=== PATIENT | male | born 2000 | race Caucasian/White ===

== ENCOUNTER 2022-08-20 18:37 | Emergency (ER) | payer OTHER, SELFPAY ==
[2022-08-20 18:43] VITALS: BP 116/100; PULSE 114; RESP 16; TEMP 36.4; O2SAT 100
--- NOTE | 2022-08-20 18:48 | ED.SKABFB ---
HPI - Skin/Abscess/Foreign Bdy General Chief complaint: Psychiatric Symptoms Stated complaint: objects in throat and coming out of ear Time Seen by Provider: 08/20/22 18:50 Source: patient and RN notes reviewed Mode of arrival: ambulatory Limitations: no limitations History of Present Illness HPI narrative: 22-year-old male presents with concern for ?bot flies calming out of his eyes, ear, chest. He reports he can ?feel them crawling around in his chest and in his head making tunnels?. Patient presented without shoes or a shirt. Patient reports history of mild bipolar, denies illicit drug use. MD complaint: insect bite/sting Related Data Allergies Allergy/AdvReac Type Severity Reaction Status Date / Time No Known Allergies Allergy Unknown Verified 08/20/22 18:49 Review of Systems Review of Systems: CONSTITUTIONAL: Reports malaise, fever. EYES: Denies redness, or discharge. ENT: Denies rhinorrhea, congestion. Reports ear pain CARDIOVASCULAR: Denies palpitations, or edema. RESPIRATORY: Denies cough or dyspnea. GASTROINTESTINAL: Denies abdominal pain, nausea, vomiting SKIN: Reports rash on his chest MUSCULOSKELETAL: Denies joint pain or myalgia. NEUROLOGIC: Denies headache. All systems reviewed & are unremarkable except as noted in HPI and below PMFSH Comments At time of signature, agree with nursing past medical, surgical, social and family history. There is no relevant family history pertinent to the presenting complaint Exam Narrative: GENERAL: Nontoxic-appearing and in no acute distress. HEAD: Normocephalic, atraumatic. EYES: PERRLA, conjunctivae clear, and EOMI. ENT: Mucous membranes moist. Oropharynx without edema, erythema or lesions. Right TM pearly villasenor, left TM erythematous and bulging, left ear erythematous and slightly edematous, EAC slightly erythematous and edematous, erythema extending slightly into the left cheek and behind the left ear. No palpable masses, fluctuant areas noted to the face or scalp NECK: Supple. No lymphadenopathy CHEST: Clear to auscultation. No respiratory distress. HEART: Regular rate and rhythm. SKIN: Warm, dry. Healing skin to the chest, periods to have had old scabs picked off. No palpable nodules, fluctuant areas noted NEURO: Alert and oriented x3. PSYCH: Patient is picking at his chest, pulling at his face and his ears, patient insisting that he has bot flies making tunnels in his body. Course Course Emergency Course: Patient reports history of bipolar, however patient appears to be suffering from mental illness. I discussed with patient that I did not see any evidence of bot flies, he insisted that he does have bot flies. I advised patient that he does have a significant ear infection and needs antibiotics to treat that. I asked patient if he has the means to get the antibiotics, transportation to the pharmacy. He states that he does. I offered patient transfer to emergency room for further evaluation, patient refuse transfer to emergency room says he will go there on his own if he needs to. Patient gave me permission to contact his father, I left a message for patient's father Patient is aware of diagnosis, understands and agrees to treatment plan. Anticipatory guidance given. Patient agrees to follow-up as directed and is aware of reasons to seek care at the emergency department. Portions of this record may have been created with voice recognition software Level of Care: Express Care Visit Vital Signs Vital signs: Reviewed. MDM - Skin/Abscess/Foreign Bdy MDM Narrative Medical decision making narrative: Exam findings show no acute concerns or changes; patient is non-toxic appearing and is in no distress. Patient is appropriate for outpatient treatment and follow-up. Critical Care Time Critical Care Time Critical Care Time: No Discharge Plan Discharge Clinical Impression: Otitis media Patient Disposition: Home, Self-Care Condition: Stable
== END 2022-08-20 18:50 | disposition home or self-care (01) ==
PROVIDERS: Emergency Provider Nurse Practitioner
DX: H66.92 Otitis media, unspecified, left ear (principal)
CPT/HCPCS: 99213; G0463

== ENCOUNTER 2024-02-02 13:41 | Emergency (ER) | payer OTHER, SELFPAY ==
--- NOTE | ~2024-02-02 | CT_ITS ---
EXAMINATION: CT brain wo con DATE: 02/02/2024 17:11 INDICATION: Seizures TECHNIQUE: Computed tomography (CT) of the head was performed without intravenous contrast. The mA wa s adjusted according to patient size. Iterative reconstruction technique was employed. Exam dose: 60 5.33 mGy-cm total exam DLP. COMPARISON: 07/05/2012 CT head, reported negative FINDINGS: No intracranial mass lesion or hemorrhage or cerebrovascular accident. Normal villasenor-white ma tter differentiation. Normal ventricular size. No subdural or epidural hematoma. The mastoid air cells and paranasal sinuses are unremarkable. No fracture or bone destruction of the cranial vault. IMPRESSION: Normal examination Reviewed, dictated and finalized at [facility] Reviewed, dictated and finalized at [facility] [employer] IMPRESSION: Normal examination
[2024-02-02 13:50] VITALS: BP 142/72; PULSE 110; RESP 20; TEMP 36.1; O2SAT 100
--- NOTE | 2024-02-02 16:40 | ECG_ITS ---
Test Date: 2024-02-02 17:00:36 Measurements Intervals Cecil Rate: 94 P: 70 DE: 137 QRS: 92 QRSD: 102 T: 56 QT: 344 QTc: 431 Interpretive Statements SINUS RHYTHM BORDERLINE RIGHT AXIS DEVIATION [QRS AXIS > 90] No previous ECG available for comparison Electronically Signed On 02-03-2024 12:44:01 [employer] by Jonas Anne M.D.
[2024-02-02 16:59] LABS: Fractional Inspired Oxygen 21 %; HCO3 VBG 27.7 mEq/l (24.0-30.0); PCO2 VBG 47.1 mmHg (42.0-48.0); PO2 VBG 34.8 mmHg (35.0-45.0); pH VBG 7.387 (7.300-7.400)
[2024-02-02 17:00] VITALS: BP 118/66; PULSE 100; RESP 14; TEMP 36.6; O2SAT 100
[2024-02-02 17:00] LABS: Device ROOM AIR
[2024-02-02 17:08] LABS: Basophils Percent Auto 0.4 % (0.2-1.2); Eosinophils Absolute Auto 0.1 K/mm3 (0-0.3); Eosinophils Percent Auto 1.7 % (0-4.4); Hematocrit 43.8 % (42.0-52.0); Hemoglobin 14.8 g/dL (14.0-18.0); Immature Granulocyte Absolute 0.06 K/mm3 (0.00-0.031); Immature Granulocyte Percent A 0.7 % (0-0.5); Lymphocytes Absolute Auto 2.37 K/mm3 (0.9-3.2); Mean Corpuscular HGB Conc 33.8 g/dl (32-36); Mean Corpuscular Hemoglobin 30.3 pg (26-34); Mean Corpuscular Volume 89.8 fl (80-100); Mean Platelet Volume 9.4 fl (7.4-10.4); Monocytes Absolute Auto 0.7 K/mm3 (0.1-0.6); Monocytes Percent Auto 8.1 % (2.6-8.5); Neutrophils Absolute Auto 5.2 K/mm3 (1.3-6.7); Neutrophils Percent Auto 61.1 % (45.5-73.1); Platelet Count Result 303 k/mm3 (150-375); Red Blood Count 4.88 M/mm3 (4.6-6.20); Red Cell Distribution Width 13.3 % (11.5-14.5); White Blood Count 8.5 K/mm3 (4.5-10.0)
[2024-02-02 17:20] LABS: Acetaminophen < 10 ug/mL (10-30); Ethanol < 10 mg/dL (<10); Salicylate < 1.0 mg/dL (2-20)
[2024-02-02 17:30] LABS: Alanine Aminotransferase 23 U/L (6-50); Albumin Level 4.4 g/dL (3.5-5.1); Alkaline Phosphatase 53 U/L (38-126); Anion Gap 5 mmol/L (4-12); Aspartate Amino Transferase 27 U/L (17-59); Bilirubin,Total 0.3 mg/dL (0.2-1.3); Blood Urea Nitrogen 26 mg/dL (9-20); Calcium 9.4 mg/dL (8.4-10.2); Carbon Dioxide 29 mmol/L (22-30); Chloride 103 mmol/L (98-107); Estimated CRCL calculation 160 ml/min; Estimated Glomerular Filt Rate > 60; Glucose 94 mg/dL (65-110); Sodium 137 mmol/L (137-145)
[2024-02-02 19:00] VITALS: BP 120/74; PULSE 98; RESP 19; TEMP 37.2; O2SAT 100
[2024-02-02 19:03] LABS: Add Urine Microscopic? YES; Appearance Urine Turbid (Clear); Bacteria Urine None Seen /hpf; Bilirubin Urine Negative (Negative); Blood Urine Negative (Negative); Color Urine Yellow (Yellow); Glucose Urine UA Negative (Negative); Ketones Urine Negative (Negative); Leukocyte Esterase Ur 1+ LEU/UL (Negative); Need Manual Microscopic Reviewed; Nitrate Urine Negative (Negative); Non Pathogenic Casts 0-2; Protein Urine 1+ mg/dL (Negative); RBC Urine 51-100 /hpf (0-2); Specific Grav Ur 1.027 (1.001-1.035); Squamous Epithelial Cell Urine None Seen /hpf (Few); Urobilinogen Urine 0.2 mg/dL (<2.0); WBC Urine 51-100 /hpf (0-3)
[2024-02-02 19:04] LABS: Amorphous Sediment Urine Moderate
[2024-02-02] MEDS: LACTATED RINGERS 1,000 ML 999 ML IV CONT (19:04)
[2024-02-02 19:32] LABS: Amphetamine Screen Urine Negative (Negative); Barbiturate Screen Urine Negative (Negative); Benzodiazepines Screen Urine Negative (Negative); Cannabinoid Screen Urine Negative (Negative); Cocaine Screen Urine Negative (Negative); Methadone Screen Urine Negative (Negative); Opiate Screen Urine Negative (Negative); Phencyclidine Screen Urine Negative (Negative)
[2024-02-02 20:20] VITALS: BP 114/66; PULSE 94; RESP 19; O2SAT 99
[2024-02-02] MEDS: CEPHALEXIN 500 MG CAPSULE PO (20:20)
--- NOTE | 2024-02-02 20:24 | ED.PSYCH ---
HPI - Psych General Chief Complaint: Psychiatric Symptoms Stated Complaint: hallucinations, seizure-like activity Time Seen by Provider: 02/02/24 16:21 History of Present Illness HPI Narrative: 23-year-old male with a past medical history including previous psychiatric illness including bipolar disorder and schizophrenia. He has a history of polysubstance abuse including mushrooms, methamphetamine, alcohol use. Presents today via private vehicle with his mother who provides the majority of additional collateral formation. Patient self is pleasant but states he has been having hallucinations and grandiose thoughts. At home he states he has been having episodes of blacking out while having hallucinations. He states that these episodes are intermittent, no postictal symptoms are generalized shaking or any true seizure reported by the family member. No history of seizures. He does not report a longstanding history of drug use including methamphetamine, alcohol use, mushrooms. He states that over a month prior he also had a traumatic brain injury and feels like he could have a concussion from this. He has been having visual hallucinations and very incoherent thoughts and is difficult to speak to given his tangential thoughts without any coherent story line presently. Mother states that this has progressively worsened over last month for has had previous psychiatric hospitalizations for similar. Does not take any psychiatric medications at this time. patient is able to be redirected and when he is redirected he is able answer questions appropriately, denies any headache, chest pain, shortness a breath, nausea, vomiting, abdominal pain. Does endorse drinking some alcohol earlier today and states that he bought alcohol similar to moonshine at a local liquor. Mom states this is correct, and denies any illicit homemade true moonshine ingestion or other toxic alcohol ingestion. No recent illicit substance use according to both parties. Related Data Allergies Allergy/AdvReac Type Severity Reaction Status Date / Time No Known Allergies Allergy Unknown Verified 02/02/24 20:21 Review of Systems Review of Systems: as reviewed above ROS unobtainable: Yes unobtainable due to medical condition and unobtainable due to mental status PMFSH Social History Social History Substance use type: marijuana, amphetamines, IV drugs and methamphetamine Exam Narrative: GENERAL: [Well-appearing, well-nourished, and in no acute distress.] HEAD: [Normocephalic, atraumatic.] EYES: [PERRLA and EOMI.] ENT: Nares clear, no rhinorrhea or epistaxis. Mucous membranes moist. NECK: Supple. CHEST: [Clear to auscultation. No respiratory distress.] HEART: [Regular rate and rhythm]. No murmur heard. [Normal peripheral pulses.] ABDOMEN: [Soft, nondistended], [nontender], [No rigidity or guarding] EXTREMITIES: Normal range of motion. [No edema.] SKIN: Warm, dry, no rash. NEURO: [No focal deficits]. Alert and oriented [x3.] PSYCH: flat affect, tangential speech, difficult to interrupt but is redirectable. Pleasant and cooperative. Grandiose thoughts with visual hallucinations described. No audible hallucinations, no suicidal or homicidal ideation. Course Vital Signs Vital signs: Vital Signs Temperature 36.1 C L 02/02/24 13:50 Pulse Rate 110 H 02/02/24 13:50 Respiratory Rate 20 02/02/24 13:50 Blood Pressure 142/72 H 02/02/24 13:50 Pulse Oximetry 100 02/02/24 13:50 Oxygen Delivery Room Air 02/02/24 13:50 Temperature 37.2 C 02/02/24 19:00 Pulse Rate 94 02/02/24 22:15 Respiratory Rate 13 02/02/24 22:15 Blood Pressure 135/64 02/02/24 22:15 Pulse Oximetry 100 02/02/24 22:15 Oxygen Delivery Room Air 02/02/24 13:50 MDM - Psych MDM Narrative Medical decision making narrative: 23-year-old male presenting to the emergency department for evaluation of hallucinations, psychosis, potential seizures. patient self is calm and cooperative but does have a very flat affect and overly psychotic with pressured tangential speech, difficult to interrupt or redirect, grandiose thoughts with nonsensical verbiage and nonlinear story telling. he does have a history of substance abuse including methamphetamine, mushrooms, alcohol abuse. Does endorse drinking several shots of store bought taylor shine earlier today, But not the illicit hand made kind that has toxic alcohols in it. Denies any other toxic ingestions or any substances such as Tylenol, salicylates, aspirin. patient does endorse head trauma about 1 month prior and his mom knows that his psychosis type symptoms have been worsening since then. No history of seizures and she has not witnessed any generalized shaking, ictal state or any postictal state during his blacking out episodes. patient was self does appear to be in some sort of psychosis presently likely schizoaffective versus schizophrenia. He has a history of bipolar depression schizophrenia but does not taking medications according to himself and the mother. A broad psychiatric clearance workup was ordered this time including head CT images, urinalysis, urine drug screen, toxicological screenings including alcohol, VBG for any evaluation of acidosis from any potential toxic alcohol ingestion. he was given a fluid bolus., EKG also obtained. workup revealed no leukocytosis, anemia or platelet concerns. blood gas was independently interpreted without any acidosis, normal pCO2 and bicarb.Chemistry panel revealed normal electrolytes, normal renal function panel, normal hepatic function panel, normal glucose. Normal TSH. Urinalysis showed some red and white blood cells and mild leukocyte esterase elevations but no bacteria. Equivocal for potential urinary infection. Patient states he did have a recent STD which was treated. Will give him a dose of Keflex at this time. Has no urinary complaints urinary symptoms at this time. Likely unrelated to his presentation incidental finding. Toxicological screening showed a negative urine drug screen, negative Tylenol salicylates and alcohol level presently. CT head shows no acute intracranial process by my interpretation by radiology's interpretation. EKG shows normal sinus rhythm without any ectopy, ST segment elevations depressions or any interval anomalies. Regular rate rhythm an axis. Overall normal sinus rhythm without any previous EKG for direct comparison. I went and re-evaluated the patient several times. He has normal reassuring vital signs and his exam remains largely unchanged and still appear floridly psychotic on repeat evaluation. I discussed the workup findings with the patient and the mother at bedside who were understanding of the largely unremarkable workup. He was given a dose of Keflex for the urinary findings although low suspicion for a true urinary infection. At this time I believe he is medically cleared for psychiatric evaluation and the family was agreeable to this. Patient has been seen and evaluated by the crisis team. They believe he can be safely placed voluntary admission at this time. Patient and family agreeable. Awaiting bed assignment at an outside facility. Will remain here in the emergency department pending placement. Differential Diagnosis Differential diagnosis: Likely acute psychosis, chronic schizophrenia, bipolar disorder, depression, drug-induced psychotic disorder, acute anxiety and other Medical Records Attestation: I reviewed the patient's medical records. Lab Data Attestation: I reviewed the patient's lab results. 02/02/24 17:01 02/02/24 17:01 Labs: Lab Results 02/02/24 02/02/24 02/02/24 Range/Units 17:01 18:40 21:06 WBC 8.5 (4.5-10.0) K/mm3 RBC 4.88 (4.6-6.20) M/mm3 Hgb 14.8 (14.0-18.0) g/dL Hct 43.8 (42.0-52.0) % MCV 89.8 (80-100) fl MCH 30.3 (26-34) pg MCHC 33.8 (32-36) g/dl RDW 13.3 (11.5-14.5) % Plt Count 303 (150-375) k/mm3 MPV 9.4 (7.4-10.4) fl Immature Gran % (Auto) 0.7 H (0-0.5) % Neut % (Auto) 61.1 (45.5-73.1) % Lymph % (Auto) 28.0 (18.3-44.2) % Tyler % (Auto) 8.1 (2.6-8.5) % Eos % (Auto) 1.7 (0-4.4) % Baso % (Auto) 0.4 (0.2-1.2) % Lymph # (Auto) 2.37 (0.9-3.2) K/mm3 Tyler # (Auto) 0.7 H (0.1-0.6) K/mm3 Eos # (Auto) 0.1 (0-0.3) K/mm3 Baso # (Auto) 0.0 (0.0-0.1) K/mm3 Abs Immat Gran (auto) 0.06 H (0.00-0.031) K/mm3 Absolute Neuts (auto) 5.2 (1.3-6.7) K/mm3 Absolute Nucleated RBC 0.000 (0.0-0.012) K/mm3 Nucleated RBC % 0.0 (0.0-0.2) % Sodium 137 (137-145) mmol/L Potassium 4.0 (3.4-5.0) mmol/L Chloride 103 (98-107) mmol/L Carbon Dioxide 29 (22-30) mmol/L Anion Gap 5 (4-12) mmol/L BUN 26 H (9-20) mg/dL Creatinine 0.70 (0.7-1.3) mg/dL Estim Creat Clear Calc 160 ml/min Estimated GFR > 60 (59 - ) Glucose 94 (65-110) mg/dL Calcium 9.4 (8.4-10.2) mg/dL Total Bilirubin 0.3 (0.2-1.3) mg/dL AST 27 (17-59) U/L ALT 23 (6-50) U/L Alkaline Phosphatase 53 (38-126) U/L Total Protein 7.0 (6.3-8.2) g/dL Albumin 4.4 (3.5-5.1) g/dL TSH 2.590 (0.465-4.680) uIU/mL Urine Color Yellow (Yellow) Urine Appearance Turbid H (Clear) Urine pH 8.0 (5.0-9.0) Ur Specific [place] 1.027 (1.001-1.035) Urine Protein 1+ H (Negative) mg/dL Urine Glucose (UA) Negative (Negative) mg/dL Urine Ketones Negative (Negative) mg/dL Ur Blood (Man) Negative (Negative) Urine Nitrate Negative (Negative) Urine Bilirubin Negative (Negative) Urine Urobilinogen 0.2 (<2.0) mg/dL Add Ur Microanalysis Reviewed Leukocyte Esterase Rfl 1+ H (Negative) ALCIDES/UL Urine RBC 51-100 H (0-2) /hpf Urine WBC 51-100 H (0-3) /hpf Ur Squamous Epith Cells None seen (Few) /hpf Amorphous Sediment Moderate H (None) Urine Bacteria None seen /hpf Urine Casts 0-2 Salicylates < 1.0 L (2-20) mg/dL Urine Opiates Screen Negative (Negative) Urine Methadone Screen Negative (Negative) Acetaminophen < 10 L (10-30) ug/mL Ur Barbiturates Screen Negative (Negative) Ur Phencyclidine Scrn Negative (Negative) Ur Amphetamine Screen Negative (Negative) U Benzodiazepines Scrn Negative (Negative) Urine Cocaine Screen Negative (Negative) U Cannabinoids Screen Negative (Negative) Ethyl Alcohol < 10 (<10) mg/dL Influenza A (RT-PCR) Negative (Negative) Influenza B (RT-PCR) Negative (Negative) SARS-CoV-2 RNA (RT-PCR) Negative (Negative) ABG Data ABG results: 02/02/24 16:53 VBG pH 7.387 VBG pCO2 47.1 VBG pO2 34.8 L VBG HCO3 27.7 O2 Delivery Device Room air O2 Liters/Min Not Reportable FiO2 21 Attestation: I personally reviewed and interpreted this ABG as follows: Imaging Data Attestation: I personally reviewed and interpreted this imaging study as follows: My impression: Impressions Head CT 02/02/24 17:22 IMPRESSION: Normal examination Discharge Plan Discharge Clinical Impression: Psychosis, Polysubstance abuse, Hallucinations, Acute UTI Patient Disposition: Psychiatric Hosp Condition: Stable Prescriptions: New cephalexin 500 mg capsule 500 mg PO Q12H 5 Days Qty: 10 0RF No Action ibuprofen 600 mg tablet 600 mg PO QID PRN (Reason: pain) Qty: 30 0RF amoxicillin-pot clavulanate 875-125 mg tablet 1 tablet PO Q12H 10 Days Qty: 20 0RF Follow-up/Referrals: UNKNOWN,DOCTOR [Primary Care Provider] - Time of Disposition: 22:33
[2024-02-02 21:45] VITALS: BP 126/59; PULSE 91; RESP 14; O2SAT 100
[2024-02-02 21:47] LABS: Influenza A QL RT-PCR Negative (Negative); Influenza B QL RT-PCR Negative (Negative); SARS-CoV-2 RNA PCR Negative (Negative)
[2024-02-02 22:15] VITALS: BP 135/64; PULSE 94; RESP 13; O2SAT 100
--- NOTE | 2024-02-02 23:10 | PC.NURSE ---
crisis sent referrals for patient to be placed at [facility], [facility], and [facility] facility.
--- NOTE | 2024-02-03 00:41 | PC.NURSE ---
this rn spoke with AMANUEL Brown at [facility] in [place], [place] for triage assessment on patient.
--- NOTE | 2024-02-03 01:11 | PC.NURSE ---
note sent to [facility] at this time.
--- NOTE | 2024-02-03 01:28 | PC.NURSE ---
patient has been accepted to [facility] at this time. They are needing UDS, medical clearance, and COVID results.
--- NOTE | 2024-02-03 01:38 | PC.NURSE ---
faxed over UDS, Medically Cleared, and COVID 19 test.
--- NOTE | 2024-02-03 03:13 | PC.NURSE ---
report given to Gabriel VITAL at [facility].
--- NOTE | 2024-02-03 03:37 | PC.NURSE ---
medication is not loaded in medication cabinet in ED. Awaiting for pharmacy to send.
[2024-02-03] MEDS: HALOPERIDOL 5 MG TABLET PO (03:53)
[2024-02-03] MEDS: ACETAMINOPHEN 500 MG TABLET 1000 MG PO (05:41)
== END 2024-02-03 06:42 ==
PROVIDERS: Emergency Provider Student in an Organized Health Care Education/Training Program
DX: R44.1 Visual hallucinations (principal); F19.10 Other psychoactive substance abuse, uncomplicated; N39.0 Urinary tract infection, site not specified; Z20.822 Contact with and (suspected) exposure to COVID-19
CPT/HCPCS: 36415; 70450; 80053; 80143; 80179; 80307; 81001; 82077; 82803; 84443; 85025; 87086; 87636; 93005; 96360; 99285; A9270; J7120